=== PATIENT | female | born 1990 | race Caucasian/White ===

== ENCOUNTER 2020-04-05 04:23 | Inpatient (IN) | payer BC, MEDICAID ==
[2020-04-05] MEDS ORDERED: OXYTOCIN 10 UNIT/ML VIAL ONE ×2 (04:43→05:40)
[2020-04-05] MEDS ORDERED: LIDOCAINE 1% INJ-PF (10 MG/ML) 30 ML SDV ONE ×2 (04:44→05:40)
[2020-04-05] MEDS ORDERED: MISOPROSTOL 0.2 MG TABLET ONE (04:44)
[2020-04-05] MEDS ORDERED: OXYTOCIN/0.9 % SODIUM CHLORIDE 0 UNIT/0 ML RTUINJ ONE (04:44)
[2020-04-05] MEDS ORDERED: RINGERS SOLUTION,LACTATED 1,000 ML IV ONE (04:46)
[2020-04-05] MEDS ORDERED: RINGERS SOLUTION,LACTATED 1,000 ML IV PRN (04:46)
[2020-04-05 05:21] LABS: ABSOLUTE EOSINOPHILS # (AUTO) 0.1 10^3/uL (0.0-0.6); ABSOLUTE LYMPHOCYTES (AUTO) 1.6 10^3/uL (0.5-4.7); ABSOLUTE MONOCYTES (AUTO) 0.6 10^3/uL (0.1-1.4); ABSOLUTE NEUT (AUTO) 5.5 10^3/uL (1.7-8.2); BASOPHILS % (AUTO) 0.2 % (0-2); EOSINOPHILS % (AUTO) 1.4 % (0-6); HEMATOCRIT 36.7 % (36.0-47.0); HEMOGLOBIN 12.3 g/dL (12.0-15.5); MEAN CORPUSCULAR HEMOGLOBIN 28.1 pg (27.0-33.4); MEAN CORPUSCULAR HGB CONC 33.4 g/dL (32.0-36.0); MEAN CORPUSCULAR VOLUME 84 fl (80-97); MONOCYTES % (AUTO) 7.4 % (3-13); PLATELET COUNT 175 10^3/uL (150-450); RED BLOOD COUNT 4.36 10^6/uL (3.72-5.28); RED CELL DISTRIBUTION WIDTH 14.4 % (11.5-14.0); TOTAL CELLS COUNTED % (AUTO) 100 %; WHITE BLOOD COUNT 7.8 10^3/uL (4.0-10.5)
--- NOTE | 2020-04-05 05:22 | Admission Physical ---
Datetime Report Generated by CPN: 04/05/2020 05:22 CURRENT ADMISSION Chief Complaint: Uterine Contractions Chief Complaint Other: Presented to LDR in active labor Admit Impression : Term, Intrauterine ; Active Labor Admit Plan: Admit to Unit; Initiate Labor Protocol ALLERGIES Medication Allergies: No Medication Allergies: No Known Allergies (12/25/2014) Latex: No Latex Allergies OBSTETRICAL HISTORY EDC: 04/10/2020 00:00 : 4 Para: 2 Gestational Diabetes: No Rh Sensitization: No Incompetent Cervix: No ALEXANDREA: No Infertility: No ART Treatment: No Uterine Anomaly: No IUGR: No Hx Previous C/S: No Macrosomia: No Hx Loss/Stillborn: No PIH: No Hx : No Placenta Previa/Abruption: No Depression/PP Depression: No PTL/PROM: No Post Hemorrhage: No Current Procedures: Ultrasound Obstetrical History Comments: G1- 2012, SAB 7 weeks G2- 2012, 41 weeks G3- 2014, G4- current SEE RECORDS Alcohol: No Marijuana : No Cocaine: No Other Illicit Drugs: No Cigarettes: Never Smoker. [id number] MEDICAL HISTORY Diabetes: No Blood Transfusion: No Pulmonary Disease (Asthma, TB): No Breast Disease: No Hypertension: No Finish Molder Surgery: No Heart Disease: No Hosp/Surgery: Yes Autoimmune Disorder: No Anesthetic Complications: No Kidney Disease: No Abnormal Pap Smear: No Neuro/Epilepsy: No Psychiatric Disorders: No Other Medical Diseases: No Hepatitis/Liver Disease: No Significant Family History: No Varicosities/Phlebitis: No Trauma/Violence : No Thyroid Dysfunction: No Medical History Comments: childbirth, R ankle surgery for staph infection as child INFECTIOUS HISTORY Gonorrhea: No Genital Herpes: No Chlamydia: No Tuberculosis: No Syphilis: No Hepatitis: No HIV/AIDS Exposure: No Rash or Viral Illness: No HPV: No PHYSICAL EXAM General: Normal HEENT: Normal Neurologic: Normal Thyroid: Normal Heart: Normal Lungs: Normal Breast: Normal Back: Normal Abdomen: Normal Genitourinary Exam: Normal Extremities: Normal DTRs: Normal Pelvic Type: Adequate Vital Signs: Reviewed; Within Normal Limits VAGINAL EXAM Dilatation: 7 Effacement: 80 Station: -2 Contraction Comments: regular FETUS A EGA: 39.2 Monitoring: External US FHR- Baseline: 130 Variability: Moderate 6-25bpm Accelerations: 15X15 Decelerations: None FHR Category: Category I Presentation: Vertex Admit Comment: at 39.2 wks EGA in active labor -Admit to LDR -NPO and IVFs. Bolus iwth LDR 1 liter now and then continue at 125 cc/hr -GBS negative -History 2 prior -Plan for PLANS FOR LABOR AND DELIVERY Labor and Delivery: None Pain Management: Epidural Feeding Preference: Formula Circumcision: Yes INFORMED CONSENT Informed Consent Obtained: Vaginal Delivery; Vacuum/Forceps Assist; Risks, Benefits and Alternatives Discussed Signature: with User ID: Natalie : with User ID: Natalie
[2020-04-05 05:23] LABS: APPEARANCE,URINE SLIGHTLY-CLOUDY; BILIRUBIN,URINE NEGATIVE (NEGATIVE); COLOR,URINE YELLOW; GLUCOSE, URINE NEGATIVE (NEGATIVE); KETONES,URINE NEGATIVE (NEGATIVE); LEUKOCYTE ESTERASE,URINE LARGE (NEGATIVE); NITRITE,URINE NEGATIVE (NEGATIVE); PROTEIN,URINE NEGATIVE (NEGATIVE); URINE SPECIFIC GRAVITY 1.009; UROBILINOGEN,URINE NEGATIVE mg/dL (<2.0)
[2020-04-05] MEDS ORDERED: EPHEDRINE SULFATE INJ 50 MG/1 ML AMPULE ONE (05:40)
[2020-04-05] MEDS ORDERED: FENTANYL/BUPIVACAINE/NS/PF 300 MCG/150 ML RTUINJ EPI ONE (05:40)
[2020-04-05] MEDS ORDERED: BUPIVACAINE HCL 0.25 % INJ/PF (2.5 MG/1 ML) 30 ML VIAL ONE (05:41)
[2020-04-05] MEDS ORDERED: OXYTOCIN/0.9 % SODIUM CHLORIDE 30 UNIT/500 ML RTUINJ ONE (05:41)
[2020-04-05 05:44] LABS: URINE AMPHETAMINES SCREEN NEGATIVE; URINE BARBITURATES SCREEN NEGATIVE; URINE BENZODIAZEPINES SCREEN NEGATIVE; URINE COCAINE SCREEN NEGATIVE; URINE MARIJUANA (THC) SCREEN NEGATIVE; URINE METHADONE SCREEN NEGATIVE; URINE PHENCYCLIDINE SCREEN NEGATIVE
[2020-04-05] MEDS ORDERED: LIDOCAINE 2% JELLY 5 ML TUBE ONE (11:26)
[2020-04-05] MEDS ORDERED: PROMETHAZINE HCL INJ 25 MG/1 ML VIAL IV PRN (11:31)
[2020-04-05] MEDS ORDERED: NA PHOS,M-B/NA PHOS,DI-BA (ADULT) 133 ML ENEMA PR PRN (11:31)
[2020-04-05] MEDS ORDERED: PSEUDOEPHEDRINE HCL 30 MG TABLET PO PRN (11:31)
[2020-04-05] MEDS ORDERED: PROMETHAZINE HCL 25 MG SUPP.RECT PR PRN (11:31)
[2020-04-05] MEDS ORDERED: GLYCERIN/WITCH HAZEL LEAF 1 EACH MED..WIPE TP PRN (11:31)
[2020-04-05] MEDS ORDERED: ACETAMINOPHEN 325 MG TABLET PO PRN (11:31)
[2020-04-05] MEDS ORDERED: ZOLPIDEM TARTRATE 5 MG TABLET PO PRN (11:31)
[2020-04-05] MEDS ORDERED: OXYTOCIN/0.9 % SODIUM CHLORIDE 30 UNIT/500 ML RTUINJ IV PRN (11:31)
[2020-04-05] MEDS ORDERED: ACETAMINOPHEN WITH CODEINE #3 TABLET PO PRN ×2 (11:31)
[2020-04-05] MEDS ORDERED: BENZOCAINE/MENTHOL AEROSOL SPRAY 56 ML TOP PRN (11:31)
[2020-04-05] MEDS ORDERED: DIPH/PERTUSS(ACELL)/TETANUS VAC/PF 0.5 ML SYR (>=10YO) IM PRN (11:31)
[2020-04-05] MEDS ORDERED: PROMETHAZINE HCL 25 MG TABLET PO PRN (11:31)
[2020-04-05] MEDS ORDERED: DIPHENHYDRAMINE HCL 25 MG CAPSULE PO PRN (11:31)
[2020-04-05] MEDS ORDERED: DIBUCAINE 1% OINTMENT 28 GM TP PRN (11:31)
[2020-04-05] MEDS ORDERED: MEASLES,MUMPS&RUBELLA VACC/PF 0.5 ML VIAL SUBCUT PRN (11:31)
[2020-04-05] MEDS ORDERED: MAGNESIUM HYDROXIDE SUSP 30 ML UDCUP PO PRN (11:31)
--- NOTE | 2020-04-05 11:52 | Warning Signs in Babies ---
VOD Warning Signs Datetime Report Generated by [facility]: 04/05/2020 11:52 VOD#[id number] -Warning Signs in Babies: Needs to be viewed. (04/05/2020 04:30:Zina Be RN)
--- NOTE | 2020-04-05 12:17 | Delivery Summary ---
Del Sum A-C Datetime Report Generated by CPN: 04/05/2020 12:17 DELIVERY PERSONNEL DELIVERY PERSONNEL: [id number] Delivery Doctor:: Emily Petty CNM Labor and Delivery Nurse:: Zina Be RNhairspring vibrator Nurse:: AIMEE Wilkins Nursery Nurse:: Ashanti Evans RN MATERNAL INFORMATION Delivery Anesthesia: Epidural Medications After Delivery: Pitocin Bolus-Please Comment; Pitocin 30 Units in 500ml NS/D5W Delivery QBL: 50 Maternal Complications: None Provider Comments: of VMI, delivered OA, loose NC x1 which was easily reduced. Bulb suctioned, then placed on pts abdoman, crying. Cord clamped and cut after one minute. Cord blood obtained. Placenta S/C/I, IV Pitocin infusing, FF. Perineum intact w/ a few "skid lori" abrasions, no repair needed. Mother and baby in stable condition, pt plans to bottlefeed. Apgars 9,9. QBL 50 ml. Attending MD is Dr Champagne LABOR SUMMARY EDC: 04/10/2020 00:00 No. Babies in Womb: 1 Attempted: No Labor Anesthesia: Epidural LABOR INFORMATION Reason for Induction: Not Applicable Onset of Labor: 04/05/2020 03:00 Complete Dilatation: 04/05/2020 11:07 Oxytocin: N/A Group B Beta Strep: negative Antibiotics # of Doses: n/a Steroids Given: None Reason Steroids Not Administered: Not Applicable MEMBRANES Membranes Rupture Method: Spontaneous Rupture of Membranes: 04/05/2020 09:32 Length of Rupture (hr): 1.95 Amniotic Fluid Color: Clear Amniotic Fluid Amount: Small Amniotic Fluid Odor: None STAGES OF LABOR Stage 1 hr: 8 Stage 1 min: 7 Stage 2 hr: 0 Stage 2 min: 22 Stage 3 hr: 0 Stage 3 min: 7 Total Time in Labor hr: 8 Total Time in Labor min: 36 VAGINAL DELIVERY Episiotomy: None Laceration #1: None Laceration Extension #1: N/A Sponge Count Correct: N/A Sharps Count Correct: N/A CSECTION DELIVERY Primary Indication: N/A Secondary Indication: N/A CSection Incidence: N/A Labor: N/A Elective: N/A CSection Incision: N/A BABY A INFORMATION Delivery Date/Time: 04/05/2020 11:29 Method of Delivery: Vaginal Born in Route : No : N/A Forceps: N/A Vacuum Extraction: N/A Shoulder Dystocia : No PRESENTATION/POSITION BABY A Presentation: Cephalic Cephalic Presentation: Vertex Vertex Position: Occipital Anterior Breech Presentation: N/A PLACENTA INFORMATION BABY A Placenta Delivery Time : 04/05/2020 11:36 Placenta Method of Delivery: Spontaneous Placenta Status: Delivered SCORES BABY A Heart Rate 1 min: >100 bpm Resp Effort 1 min: Good Cry Reflex Irritability 1 min: Cough or Sneeze or Pulls Away Muscle Tone 1 min: Active Motion Color 1 min: Body Laie, Extremities Blue Resuscitation Effort 1 min: Tactile Stimulation SCORE 1 MIN: 9 Heart Rate 5 min: >100 bpm Resp Effort 5 min: Good Cry Reflex Irritability 5 min: Cough or Sneeze or Pulls Away Muscle Tone 5 min: Active Motion Color 5 min: Body Laie, Extremities Blue Resuscitation Effort 5 min: N/A SCORE 5 MIN: 9 INFORMATION BABY A Gestational Age at Delivery: 39.2 Gestational Status: Full Term- 39- 40.6 Weeks Infant Outcome : Liveborn Condition : Stable Sex: Male IDENTIFICATION BABY A Verification Date/Time: 04/05/2020 11:45 ID Band Number: [id number] Mother's Name Verified: Yes Infant RN Verifying Infant: JNiebuhr,RN Additional Verifying Personnel: SBrown,FUND RAISER WEIGHT/LENGTH BABY A Birthweight (gm): 3661 Infant Weight (lb): 8 Infant Weight (oz): 1 Infant Length (in): 21.00 Infant Length (cm): 53.34 CORD INFORMATION BABY A No. Cord Vessels: 3 Nuchal Cord : Around Neck x1, Tight Cord Blood Taken: Yes-For Storage (Mom's Blood type +) Infant Suction: Mouth; Nose ASSESSMENT BABY A Skin to Skin: Yes BABY B INFORMATION : N/A SIGNATURES Assignment: Ayala Champagne MD Signature: with User ID: Gabriel : with User ID: Gabriel
[2020-04-05] MEDS ORDERED: IBUPROFEN 800 MG TABLET ONE (13:21)
[2020-04-05] MEDS: IBUPROFEN 800 MG TABLET PO SCH ×2 (13:24→21:54)
[2020-04-05] MEDS: DOCUSATE SODIUM 100 MG CAPSULE PO SCH (17:07)
[2020-04-05] MEDS: FERROUS SULFATE 325 MG TABLET PO SCH (17:07)
[2020-04-05] MEDS: FAMOTIDINE 20 MG TABLET PO SCH (21:54)
[2020-04-06] MEDS: IBUPROFEN 800 MG TABLET PO SCH ×3 (05:15→21:32)
[2020-04-06 06:47] LABS: HEMATOCRIT 33.5 % (36.0-47.0); HEMOGLOBIN 11.4 g/dL (12.0-15.5); MEAN CORPUSCULAR HEMOGLOBIN 28.5 pg (27.0-33.4); MEAN CORPUSCULAR HGB CONC 33.9 g/dL (32.0-36.0); MEAN CORPUSCULAR VOLUME 84 fl (80-97); PLATELET COUNT 172 10^3/uL (150-450); RED BLOOD COUNT 3.98 10^6/uL (3.72-5.28); RED CELL DISTRIBUTION WIDTH 15.2 % (11.5-14.0); WHITE BLOOD COUNT 11.9 10^3/uL (4.0-10.5)
[2020-04-06] MEDS: SENNOSIDES/DOCUSATE 8.6-50 MG 1 EACH TABLET PO SCH (09:36)
[2020-04-06] MEDS: DOCUSATE SODIUM 100 MG CAPSULE PO SCH ×2 (09:36→18:07)
[2020-04-06] MEDS: PRENATAL VITAMIN W DHA CAPSULE PO SCH (09:36)
[2020-04-06] MEDS: FERROUS SULFATE 325 MG TABLET PO SCH ×2 (09:36→18:07)
[2020-04-06] MEDS: FAMOTIDINE 20 MG TABLET PO SCH ×2 (09:37→21:32)
--- NOTE | 2020-04-06 10:04 | PDOC PROGRESS REPORT ---
Subjective-OB Progress Note for:: 04/06/20 Subjective: Doing well, no c/o, bottle feeding, scant bleeding Physical Exam (OB) Vital Signs: Temp Pulse Resp BP Pulse Ox 98.4 F 118 H 18 129/68 H 98 04/06/20 08:42 04/06/20 08:42 04/06/20 08:42 04/06/20 08:42 04/06/20 08:42 Intake & Output 04/05/20 04/06/20 04/07/20 06:59 06:59 06:59 Weight 70.8 kg - PIH/Pre-Eclampsia DTR's: 1 + Clonus: Negative Headache: Absent Epigastric Pain: No Visual Changes: No - Lochia Lochia Amount: Scant < 10 ml Lochia Color: Rubra/Red - Abdomen Description: Soft, Round Hernia Present: No Fundal Description: Firm, Midline Fundal Height: u/u - u/2 Objective-Diagnostic Laboratory: 04/06/20 06:11 04/06/20 06:11 WBC 11.9 H RBC 3.98 Hgb 11.4 L Hct 33.5 L MCV 84 MCH 28.5 MCHC 33.9 RDW 15.2 H Plt Count 172 Assessment and Plan(PN) - Assessment and Plan (1) Vaginal delivery Is this a current diagnosis for this admission?: Yes (2) Active labor at term Is this a current diagnosis for this admission?: Yes - Time Spent with Patient Time with patient: Less than 15 minutes Medications reviewed and adjusted accordingly: Yes - Disposition Anticipated Discharge: Home Within: within 24 hours
[2020-04-07] MEDS: IBUPROFEN 800 MG TABLET PO SCH (05:41)
[2020-04-07] MEDS: FERROUS SULFATE 325 MG TABLET PO SCH (10:26)
[2020-04-07] MEDS: PRENATAL VITAMIN W DHA CAPSULE PO SCH (10:26)
[2020-04-07] MEDS: DOCUSATE SODIUM 100 MG CAPSULE PO SCH (10:26)
[2020-04-07] MEDS: SENNOSIDES/DOCUSATE 8.6-50 MG 1 EACH TABLET PO SCH (10:26)
[2020-04-07] MEDS: FAMOTIDINE 20 MG TABLET PO SCH (10:26)
[2020-04-07 10:37] VITALS: BP 129/68
--- NOTE | 2020-04-07 10:55 | PDOC PROGRESS REPORT ---
Subjective-OB Progress Note for:: 04/07/20 Subjective: Ready to go home, c/o of pain in back and then her head hurts and pulse goes up and BP, scant bleeding, bottle feeding. alert, talking, walking without issues, no vertigo Physical Exam (OB) Vital Signs: Temp Pulse Resp BP Pulse Ox 97.8 F 117 H 18 129/68 H 98 04/07/20 10:36 04/07/20 10:36 04/07/20 10:36 04/07/20 10:36 04/07/20 10:36 Intake & Output 04/06/20 04/07/20 04/08/20 06:59 06:59 06:59 Intake Total 500 Balance 500 - PIH/Pre-Eclampsia DTR's: 1 + Clonus: Negative Headache: Absent Epigastric Pain: No Visual Changes: No - Lochia Lochia Amount: Scant < 10 ml Lochia Color: Rubra/Red - Abdomen Description: Soft, Round Hernia Present: No Fundal Description: Firm, Midline Fundal Height: u/u - u/2 Objective-Diagnostic Laboratory: 04/06/20 06:11 Assessment and Plan(PN) - Assessment and Plan (1) Vaginal delivery Is this a current diagnosis for this admission?: Yes (2) Active labor at term Is this a current diagnosis for this admission?: Yes - Time Spent with Patient Time with patient: Less than 15 minutes Medications reviewed and adjusted accordingly: Yes - Disposition Anticipated Discharge: Home Within: within 24 hours
--- NOTE | 2020-04-07 10:59 | PDOC DISCHARGE SUMMARY ---
Impression - Admit/DC Date/PCP Admission Date/Primary Care Provider: 04/05/20 04:44 MILVIA GARCIA MD Discharge Date: 04/07/20 - Discharge Diagnosis (1) Vaginal delivery Is this a current diagnosis for this admission?: Yes (2) Active labor at term Is this a current diagnosis for this admission?: Yes - Additional Information Resuscitation Status: Full Code Discharge Diet: As Tolerated, Regular Discharge Activity: Activity As Tolerated, Pelvic Rest Referrals: MILVIA GARCIA MD [Primary Care Provider] - Home Medications: Pv W-O Vit A/Iron,Carbonyl/FA [Prenatabs Obn Tablet] 1 each PO DAILY 06/24/12 HPI Gestational Age: 39.2 Reason(s) for Admission: Onset of Labor Procedures: Ultrasound Intrapartum Procedure(s): Spontaneous Vaginal Delivery Hospital Course Hospital Course: routine, back pain and headache Results Laboratory Results: WBC 11.9 10^3/uL (4.0-10.5) H 04/06/20 06:11 RBC 3.98 10^6/uL (3.72-5.28) 04/06/20 06:11 Hgb 11.4 g/dL (12.0-15.5) L 04/06/20 06:11 Hct 33.5 % (36.0-47.0) L 04/06/20 06:11 MCV 84 fl (80-97) 04/06/20 06:11 MCH 28.5 pg (27.0-33.4) 04/06/20 06:11 MCHC 33.9 g/dL (32.0-36.0) 04/06/20 06:11 RDW 15.2 % (11.5-14.0) H 04/06/20 06:11 Plt Count 172 10^3/uL (150-450) 04/06/20 06:11 Lymph % (Auto) 21.0 % (13-45) 04/05/20 05:04 [place] % (Auto) 7.4 % (3-13) 04/05/20 05:04 Eos % (Auto) 1.4 % (0-6) 04/05/20 05:04 Baso % (Auto) 0.2 % (0-2) 04/05/20 05:04 Absolute Neuts (auto) 5.5 10^3/uL (1.7-8.2) 04/05/20 05:04 Absolute Lymphs (auto) 1.6 10^3/uL (0.5-4.7) 04/05/20 05:04 Absolute Monos (auto) 0.6 10^3/uL (0.1-1.4) 04/05/20 05:04 Absolute Eos (auto) 0.1 10^3/uL (0.0-0.6) 04/05/20 05:04 Absolute Basos (auto) 0.0 10^3/uL (0.0-0.2) 04/05/20 05:04 Seg Neutrophils % 70.0 % (42-78) 04/05/20 05:04 Urine Color YELLOW 04/05/20 04:34 Urine Appearance SLIGHTLY-CLOUDY 04/05/20 04:34 Urine pH 6.0 (5.0-9.0) 04/05/20 04:34 Ur Specific [place] 1.009 04/05/20 04:34 Urine Protein NEGATIVE mg/dL (NEGATIVE) 04/05/20 04:34 Urine Glucose (UA) NEGATIVE mg/dL (NEGATIVE) 04/05/20 04:34 Urine Ketones NEGATIVE mg/dL (NEGATIVE) 04/05/20 04:34 Urine Blood NEGATIVE (NEGATIVE) 04/05/20 04:34 Urine Nitrite NEGATIVE (NEGATIVE) 04/05/20 04:34 Urine Bilirubin NEGATIVE (NEGATIVE) 04/05/20 04:34 Urine Urobilinogen NEGATIVE mg/dL (<2.0) 04/05/20 04:34 Ur Leukocyte Esterase LARGE (NEGATIVE) H 04/05/20 04:34 Urine Ascorbic Acid NEGATIVE (NEGATIVE) 04/05/20 04:34 Urine Opiates Screen NEGATIVE 04/05/20 04:34 Urine Methadone Screen NEGATIVE 04/05/20 04:34 Ur Barbiturates Screen NEGATIVE 04/05/20 04:34 Ur Phencyclidine Scrn NEGATIVE 04/05/20 04:34 Ur Amphetamines Screen NEGATIVE 04/05/20 04:34 U Benzodiazepines Scrn NEGATIVE 04/05/20 04:34 Urine Cocaine Screen NEGATIVE 04/05/20 04:34 U Marijuana (THC) Screen NEGATIVE 04/05/20 04:34 RPR NONREACTIVE (NONREACTIVE) 04/05/20 05:04 Blood Type A POSITIVE 04/05/20 05:04 Antibody Screen NEGATIVE 04/05/20 05:04 Plan Health Concerns: back ache and headache, will have anesthesia come evaluate pt Plan of Treatment: routine Goals: no complications Time Spent: Less than 30 Minutes
== END 2020-04-07 14:33 | disposition home or self-care (01) | DRG 807 ==
LOC: LC 04:23 → LR 04:44 → 2S 13:40
PROVIDERS: ADMIT Obstetrics & Gynecology; ATTEND Obstetrics & Gynecology
PROC: 10E0XZZ Delivery of Products of Conception, External Approach (ICD-10-PCS; principal; 2020-04-05)
DX: O69.81X0 Labor and delivery complicated by cord around neck, without compression, not applicable or unspecified (principal); Z37.0 Single live birth; O70.0 First degree perineal laceration during delivery; Z3A.39 39 weeks gestation of pregnancy
CPT/HCPCS: 1967; 36415; 80307; 81005; 85025; 85027; 86592; 86850; 86900; 86901; 94760; J2590; J3010; J3490